=== PATIENT | female | born 1935 | race Caucasian/White ===

== ENCOUNTER 2017-02-02 06:17 | Day surgery (SDC) | payer OTHER ==
[~2017-02-02] VITALS: Ht 162.6 cm; Wt 53.0 kg
[~2017-02-02 06:17] MED LIST: LIPITOR10 MG PO; ZESTRIL5 MG PO
[2017-02-02 06:55] VITALS: BP 177/77
[2017-02-02 10:25] VITALS: BP 180/73
[2017-02-02 11:00] VITALS: BP 184/71
== END 2017-02-02 11:00 | disposition home or self-care (01) ==
LOC: SDC 06:17
DX: H35.372 Puckering of macula, left eye (principal); H35.81 Retinal edema; H26.40 Unspecified secondary cataract; I10 Essential (primary) hypertension; E78.2 Mixed hyperlipidemia; K21.9 Gastro-esophageal reflux disease without esophagitis; Z87.891 Personal history of nicotine dependence
CPT/HCPCS: J0690; J0713; J2405; J3010